=== PATIENT | female | born 1945 | race Caucasian/White ===

== ENCOUNTER 2018-02-22 07:46 | Emergency (ER) | payer OTHER ==
[~2018-02-22] VITALS: Ht 160 cm; Wt 68.0 kg
[~2018-02-22 07:46] MED LIST: ALPRAZOLAM ER1 MG PO; ASPIR 8181 M1 PO; HUMALOG100 UNIT/2 SUBQ; INDERAL LA120 M1 PO; LANTUS100 UNIT/M SUBQ; LEVAQUIN 500 M500 M2 PO; LIPITOR 20 MG T20 M1 PO; METFORMIN HCL500 MG PO; TOPROL XL25 MG PO
[2018-02-22 07:50] VITALS: BP 134/42
[2018-02-22] MEDS ORDERED: NORCO 5-325 TA1 EACH PO (07:58)
[2018-02-22] MEDS ORDERED: FLEXERIL PO (07:58)
== END 2018-02-22 08:24 | disposition home or self-care (01) ==
LOC: M.ERS 07:46
DX: S16.1XXA Strain of muscle, fascia and tendon at neck level, initial encounter (principal); E78.5 Hyperlipidemia, unspecified; E11.9 Type 2 diabetes mellitus without complications; Z79.4 Long term (current) use of insulin; W01.0XXA Fall on same level from slipping, tripping and stumbling without subsequent striking against object, initial encounter; Y93.89 Activity, other specified; Y92.89 Other specified places as the place of occurrence of the external cause; Y99.8 Other external cause status

== ENCOUNTER 2018-03-02 07:54 | Emergency (ER) | payer OTHER ==
[~2018-03-02] VITALS: Ht 165.1 cm; Wt 77.1 kg
[~2018-03-02 07:54] MED LIST changes: +FLEXERIL PO; +NORCO 5-325 TA1 EACH PO
[2018-03-02] MEDS ORDERED: LISINOPRIL5 MG PO (08:15)
[2018-03-02] MEDS ORDERED: ANTIVERT25 MG PO (08:16)
[2018-03-02 08:26] LABS: URINE BILIRUBIN NEGATIVE (Negative); URINE BLOOD 3+ (Negative); URINE CLARITY CLEAR; URINE COLOR YELLOW; URINE GLUCOSE-RANDOM NEGATIVE (Negative); URINE KETONES NEGATIVE (Negative); URINE PROTEIN TRACE (Negative); URINE SPECIFIC GRAVITY <= 1.005 (1.005-1.030); URINE UROBILINOGEN 0.2 E.U./dl (0.2-1.0)
[2018-03-02 08:27] LABS: URINE LEUKOCYTES-REFLEX 3+ (Negative); URINE NITRITE-REFLEX POSITIVE (Negative)
[2018-03-02 08:43] LABS: ANION GAP 8 mmol/L (7-16); BUN 12 mg/dL (7-18); CALCIUM 9.4 mg/dL (8.5-10.1); CHLORIDE 99 mmol/L (98-107); CO2 29 mmol/L (21-32); CREATININE 0.8 mg/dL (0.6-1.3); GLUCOSE 101 mg/dL (70-99); POTASSIUM 3.8 mmol/L (3.5-5.1); SODIUM 136 mmol/L (136-145)
[2018-03-02 08:49] LABS: ALBUMIN 3.5 g/dL (3.4-5.0); ALKALINE PHOSPHATASE 153 U/L (46-116); LIPASE 204 U/L (73-393); SGOT 61 U/L (15-37); SGPT 63 U/L (30-65); TOTAL BILIRUBIN 0.7 mg/dL (<0.1-1.0); TOTAL PROTEIN 7.9 g/dL (6.4-8.2); TROPONIN-I LEVEL <0.06 ng/mL (<0.06)
[2018-03-02 08:50] LABS: ABSOLUTE EOSINOPHILS 0.1 thou/uL (0.0-0.7); ABSOLUTE LYMPHOCYTES 1.2 thou/uL (0.8-5.3); ABSOLUTE MONOCYTES 0.6 thou/uL (0.0-1.2); ABSOLUTE NEUTROPHILS 4.2 thou/uL (1.6-8.1); BASOPHILS 0.5 %; EOSINOPHILS 1.8 %; HEMATOCRIT 38.9 % (37.0-47.0); HEMOGLOBIN 13.5 gm/dL (12.0-15.0); LYMPHOCYTES 19.8 %; MCH 33.2 pg (26.0-34.0); MCHC 34.6 g/dL (28.0-37.0); MPV 8.2 fl. (7.2-11.1); NUCLEATED RBCS 0 /100WBC; PLATELET COUNT* 195 thou/uL (150-400); POLYS 67.9 %; RBC 4.05 mil/uL (4.20-5.00); RDW-CV 12.9 % (10.5-14.5); WBC 6.2 thou/uL (4.0-11.0)
[2018-03-02 08:51] LABS: BACTERIA-REFLEX >30 Many /HPF (None Seen); CASTS None Seen /LPF (None Seen); CRYSTALS None Seen /LPF (None Seen); MUCUS 0-3 Light strn/LPF (None Seen); SQUAMOUS 0-3 Few /LPF (0-3); URINE WBC-REFLEX >25 Many /HPF (0-5)
[2018-03-02 08:52] LABS: URINE RBC 3-10 Few /HPF (0-2)
[2018-03-02] MEDS ORDERED: KEFLEX500 M1 PO (09:21)
[2018-03-02 09:49] VITALS: BP 129/49
--- NOTE | 2018-03-03 11:52 | EKG ---
[place] [address] ELECTROCARDIOGRAM REPORT Name: ADRIENNE,ANDREW Martin Room: [facility]#: [id number] Admission: 03/02/18 Attend Phys: Discharge: 03/02/18 Date of : 49 Report #: [id number] THIS REPORT FOR: //name// [facility] ED Test Date: 2018-03-02 Test Time: 09:00:31 Pat Name: ANDREW DELEON Department: Room: Gender: F [address] [employer]: [place] : 1945 Requested By: Alonzo Ralph Order Number: [id number] MD: Gordon Larson Measurements Intervals [place] Rate: 85 P: 15 ND: 171 QRS: -25 QRSD: 83 T: QT: 384 QTc: 457 Interpretive Statements Sinus rhythm Borderline left axis deviation Borderline T abnormalities, inferior leads Compared to ECG 10/27/2015 09:00:45 T-wave abnormality now present Myocardial infarct finding no longer present Electronically Signed On 03-03-2018 11:52:12 CDT by Gordon Larson [email or web address] <ELECTRONICALLY SIGNED> By: Gordon Larson MD, [facility] 03/03/18 1152 09 0900 Gordon Larson MD, [facility] /EPI
== END 2018-03-02 09:50 | disposition home or self-care (01) ==
LOC: M.ERS 07:54
PROVIDERS: Emergency Medicine Emergency Medical Services
DX: N39.0 Urinary tract infection, site not specified (principal); I95.1 Orthostatic hypotension; R42 Dizziness and giddiness; E78.5 Hyperlipidemia, unspecified; E11.9 Type 2 diabetes mellitus without complications; Z90.710 Acquired absence of both cervix and uterus; Z79.4 Long term (current) use of insulin